=== PATIENT | female | born 1940 | race Caucasian/White ===

== ENCOUNTER → 2017-01-23 | Outpatient (CLI) | payer MEDICARE ==
[~2017-01-23] MED LIST: AMITRIPTYLINE H25 MG PO; DICYCLOMINE HCL20 MG PO; GABAPENTIN100 MG PO; HYDROXYCHLOROQ200 MG PO; MELOXICAM15 MG PO; NASONEX17 GM BOTH NARES; NORCO 5/3251 TABLET PO; RABEPRAZOLE SOD20 MG PO; SYNTHROID125 MCG PO; VICODIN 5-3001 EACH PO
== END | disposition home or self-care (01) ==
LOC: CDC 15:00
DX: Z01.810 Encounter for preprocedural cardiovascular examination (principal); I25.10 Atherosclerotic heart disease of native coronary artery without angina pectoris; I49.3 Ventricular premature depolarization
CPT/HCPCS: 93000

== ENCOUNTER 2017-02-19 03:56 | Inpatient (IN) | payer OTHER, MEDICARE ==
[~2017-02-19] VITALS: Ht 165.1 cm; Wt 69.1 kg
[2017-02-19] VITALS (7 sets, daily range): BP systolic 0–187; BP diastolic 0–110
[~2017-02-19 03:56] MED LIST changes: +ALLERGY RELIE15.8 ML BOTH NARES; +ASPIRIN81 M2 PO; +BENTYL20 MG PO; -DICYCLOMINE HCL20 MG PO; +MOBIC15 MG PO
[2017-02-19 19:21] LABS: METH RESISTANT S AUREUS PCR NEGATIVE (NEGATIVE)
[2017-02-19 19:24] LABS: PROBE CHECK PASS; SPECIMEN PROCESSING CONTROL PASS
[2017-02-20] VITALS: BP 136/77
[2017-02-20 04:00] VITALS: BP 133/78
[2017-02-20 08:00] VITALS: BP 127/63
[2017-02-20] MEDS ORDERED: TRAMADOL HCL50 MG PO (08:57)
== END 2017-02-20 10:45 | disposition home or self-care (01) | DRG 39 ==
LOC: ENRESERV 03:56 → CANRESERV 03:56 → ENRESERV 07:43 → 2SOUTH 08:57 → 4WEST 11:58 → 2SOUTH 13:39 → ENRESERV 14:27 → 2SOUTH 15:56 → 4WEST 17:23 → ENRESERV 22:00 → CANRESERV 02-20 07:02 → 4WEST 02-20 10:45
PROVIDERS: Surgery
DX: I65.22 Occlusion and stenosis of left carotid artery (principal); M79.7 Fibromyalgia; K21.9 Gastro-esophageal reflux disease without esophagitis; E78.00 Pure hypercholesterolemia, unspecified; M06.9 Rheumatoid arthritis, unspecified; E03.9 Hypothyroidism, unspecified; I10 Essential (primary) hypertension; Z88.0 Allergy status to penicillin; Z88.5 Allergy status to narcotic agent; Z90.710 Acquired absence of both cervix and uterus; Z83.3 Family history of diabetes mellitus; Z82.49 Family history of ischemic heart disease and other diseases of the circulatory system
CPT/HCPCS: 87641; 93005; 94799; C1768; J0131; J1170; J1644; J2250; J2405; J2720; J2795; J3010